=== PATIENT | female | born 1950 | race African-American/Black ===

== ENCOUNTER 2021-10-23 20:38 | Emergency (ER) | payer MEDICARE ==
[~2021-10-23] VITALS: Ht 160 cm; Wt 77.0 kg
[2021-10-24 06:30] VITALS: BP 108/65
== END 2021-10-24 11:25 | disposition home or self-care (01) ==
LOC: ER 20:38
DX: G93.40 Encephalopathy, unspecified (principal); I10 Essential (primary) hypertension
CPT/HCPCS: 99285

== ENCOUNTER 2021-12-27 11:35 | Emergency (ER) | payer MEDICARE ==
[~2021-12-27] VITALS: Ht 172.7 cm; Wt 82.0 kg
[2021-12-27] MEDS ORDERED: KETOROLAC 60MG/2ML VIAL IM ONE ×2 (12:45→14:45)
[2021-12-28 04:00] VITALS: BP 136/77
== END 2021-12-28 09:31 | disposition home or self-care (01) ==
LOC: ER 11:49
DX: M25.552 Pain in left hip (principal); G89.29 Other chronic pain; I10 Essential (primary) hypertension; Z99.3 Dependence on wheelchair
CPT/HCPCS: 73502; 96372; 99283; J1885